=== PATIENT | male | born 1970 | race Native Hawaiian/Other Pacific Islander ===

== ENCOUNTER 2016-08-14 07:25 | Outpatient (CLI) | payer OTHER | END 2016-08-14 07:39 | disposition short-term general hospital (02) | LOC: AMB 07:25 | DX: S21.132A Puncture wound without foreign body of left front wall of thorax without penetration into thoracic cavity, initial encounter (principal); Y92.810 Car as the place of occurrence of the external cause | CPT/HCPCS: A0425; A0427 ==

== ENCOUNTER 2017-06-27 03:27 | Emergency (ER) | payer OTHER ==
[~2017-06-27] VITALS: Ht 180.3 cm; Wt 83.9 kg
[2017-06-27 04:31] LABS: POTASSIUM 3.7 mmol/L (3.6-5.2); SODIUM 137 mmol/L (136-145)
[2017-06-27 07:00] VITALS: BP 127/91; TEMP 97.4
[2017-06-27 08:40] LABS: PLATELET COUNT 234 K/uL (142-355)
== END 2017-06-27 07:00 | disposition short-term general hospital (02) ==
LOC: ED 03:27
DX: R07.89 Other chest pain (principal); R68.89 Other general symptoms and signs
CPT/HCPCS: 80053; 82550; 82553; 84484; 85027; 85610; 85730; 93005; 99285; J1644

== ENCOUNTER 2017-06-27 07:07 | Outpatient (CLI) | payer OTHER | END 2017-06-27 08:26 | disposition short-term general hospital (02) | LOC: AMB 07:07 | DX: R07.89 Other chest pain (principal); R68.89 Other general symptoms and signs | CPT/HCPCS: A0425; A0427 ==

== ENCOUNTER 2020-05-29 08:13 | Emergency (ER) | payer OTHER ==
[~2020-05-29] VITALS: Ht 180.3 cm; Wt 90.7 kg
[2020-05-29 08:40] VITALS: TEMP 98.3
[2020-05-29 11:53] VITALS: BP 147/93
== END 2020-05-29 11:55 | disposition home or self-care (01) ==
LOC: ED 08:13
DX: S73.035A Other anterior dislocation of left hip, initial encounter (principal); V49.40XA Driver injured in collision with unspecified motor vehicles in traffic accident, initial encounter; Y92.410 Unspecified street and highway as the place of occurrence of the external cause
CPT/HCPCS: 96372; 99283; J1885

== ENCOUNTER 2021-01-31 06:47 | Observation (INO) | payer BC ==
[2021-01-31] VITALS (8 sets, daily range): BP systolic 119–170; BP diastolic 70–98; TEMP 98.2–98.4; Ht 180.3 cm; Wt 89.5 kg
[~2021-01-31] VITALS: Ht 180.3 cm; Wt 89.5 kg
[2021-01-31 07:12] LABS: PLATELET COUNT 218 K/uL (142-355)
[2021-01-31 07:20] LABS: POTASSIUM 4.4 mmol/L (3.6-5.2); SODIUM 135 mmol/L (136-145)
[2021-01-31 07:36] LABS: PARTIAL THROMBOPLASTIN TIME 21.7 SECONDS (24.5-33.6)
[2021-01-31] MEDS ORDERED: METF100038 PO (09:58)
[2021-01-31] MEDS ORDERED: LIPITOR40 MG PO (09:59)
[2021-01-31] MEDS ORDERED: TRICOR145 M1 PO (09:59)
[2021-01-31] MEDS ORDERED: VITAMIN D22000 UNIT PO (10:01)
[2021-01-31] MEDS ORDERED: VALACYCLOVIR HYD1 GM PO (10:04)
[2021-01-31] MEDS ORDERED: ZESTRIL40 MG PO (10:05)
[2021-01-31] MEDS ORDERED: AMLODIPINE BESYLATE PO (10:06)
[2021-01-31] MEDS ORDERED: SILDENAFIL100 MG PO (10:06)
== END 2021-01-31 17:19 | disposition home or self-care (01) ==
LOC: ED 06:47 → MED/SURG 08:18
PROVIDERS: Emergency Medicine; ADMIT Internal Medicine Endocrinology, Diabetes & Metabolism; ATTEND Internal Medicine Endocrinology, Diabetes & Metabolism
DX: R07.89 Other chest pain (principal); E11.9 Type 2 diabetes mellitus without complications; E78.49 Other hyperlipidemia; R06.02 Shortness of breath; I11.0 Hypertensive heart disease with heart failure; I50.9 Heart failure, unspecified
CPT/HCPCS: 80053; 82550; 83880; 84484; 85027; 85379; 85610; 85730; 87635; 93005; 99220; 99284; G0378; J1815; J3490; U0003